=== PATIENT | female | born 1990 | race Two or more races ===

== ENCOUNTER 2020-11-12 08:00 | Outpatient (CLI) | payer BC ==
[2020-11-12] MEDS ORDERED: FISH400C3 PO (09:43)
[2020-11-12] MEDS ORDERED: PREN1TAB10 PO (09:43)
[2020-11-12] MEDS ORDERED: ASCO-184 PO (09:43)
== END 2020-11-12 23:59 | disposition home or self-care (01) ==
LOC: STAR 08:00
PROVIDERS: ATTEND Student in an Organized Health Care Education/Training Program
DX: Z01.812 Encounter for preprocedural laboratory examination (principal); Z20.822 Contact with and (suspected) exposure to COVID-19
CPT/HCPCS: 36415; 81003; 84702; 85025; U0003